=== PATIENT | male | born 1990 | race Caucasian/White ===

== ENCOUNTER 2017-07-05 05:15 | Inpatient (IN) ==
--- NOTE | 2017-06-27 14:36 | EKG Report ---
Stationary ECG Study [facility] Test Date: 06/27/2017 2:37:31 PM Pat Name: YUMIKO IZQUIERDO Department: Room: Gender: M Adjunct Phlebotomy Instructor: ROSETTE SCHAEFER : 1990 Requested by: Lloyd Schaefer Order Number: [id number] Reading MD: DANG BLANK Intervals [place] Rate: 87 P: 63 MS: 103 QRS: 36 QRSD: 101 T: -20 QT: 348 QTc: 392 Interpretive Statements SINUS RHYTHM WITH SHORT MS INTERVAL INFERIOR MYOCARDIAL INFARCTION, OF INDETERMINATE AGE PROBABLE ANTEROLATERAL MYOCARDIAL INFARCTION, OF INDETERMINATE AGE INTERPRETATION BASED ON A DEFAULT AGE OF 40 YEARS Electronically Signed On 06-27-17 15:32:03 CDT by DANG BLANK [email or web address]
[2017-06-27 14:38] LABS: Apearance,Urine CLEAR (Clear); Bilirubin,Urine Negative (Negative); Blood, Urine Negative (Negative); Glucose,Urine (UA) Negative (Negative); Ketones,Urine Negative (Negative); Nitrite,Urine Negative (Negative); Protein,Urine Negative; RBC,Urine <1 /HPF (0-4); Squamous Epithelial Cell,Urine Occasional /HPF (0-10); Urine Color Yellow (Yellow); Urine Specific Gravity 1.009 (1.001-1.035); Urine Urobilinogen < 2.0 EU/DL (0.2-1.0); WBC,Urine <1 /HPF (0-6)
[2017-06-27 14:56] LABS: Calcium 9.5 MG/DL (8.5-10.1); Osmolality,Calculated 272.7 MOS/KG (273-304); Potassium 4.2 MMOL/L (3.5-5.1)
[2017-06-27 19:15] LABS: Basophils # 0.1 10*3/uL (0.0-0.2); Basophils % 0.6 % (0.0-0.8); Eosinophils # 0.2 10*3/uL (0.0-0.87); Eosinophils % 1.7 % (0.00-10.9); Hematocrit 41.6 VOL% (42.0-52.0); Hemoglobin 15.1 GM/DL (14.0-18.0); Immature Granulocytes % 0.2 %; Immature Granulocytes Absolute 0.02 #; Lymphocytes # 1.7 10*3/uL (1.4-4.0); Mean Corpuscular HGB Conc 36.3 GM/DL (32-36); Mean Corpuscular Hemoglobin 31 PG (27-34); Mean Corpuscular Volume 84.6 FL (87-102); Mean Platelet Volume 10.1 FL (9.6-12.0); Monocytes # 0.5 10*3/uL (0.11-0.8); Monocytes % 5.1 % (1.7-12.7); Neutrophils # 6.5 10*3/uL (1.4-7.4); Neutrophils % 73.4 % (38.7-73.9); Platelet Count 319 T/CUMM (130-400); Red Blood Count 4.92 MC/CUMM (3.8-5.5); Red Cell Distribution Width 12.1 % (9.3-17.3); White Blood Count 8.9 T/CUMM (4-12)
[2017-07-05] MEDS ORDERED: ALVIMOPAN 12 MG CAPSULE PO ONE (06:00)
[2017-07-05] MEDS ORDERED: cefTRIAXone 1,000 MG in SODIUM CHLORIDE 0.9% 100 ML IV ONE (06:00)
[2017-07-05] MEDS ORDERED: INDOCYANINE GREEN 25 MG VIAL IV ONE (06:08)
[2017-07-05] MEDS: LACTATED RINGERS 1,000 ML IV SCH (06:45)
[2017-07-05] MEDS ORDERED: cefTRIAXone 1,000 MG VIAL ONE (06:54)
[2017-07-05] MEDS ORDERED: SODIUM CHLORIDE 0.9% 100 ML IV ONE (06:54)
[2017-07-05] MEDS ORDERED: NEOSTIGMINE 10 MG/10 ML VIAL ONE (07:10)
[2017-07-05] MEDS ORDERED: DEXAMETHASONE 4 MG/1 ML VIAL ONE (07:10)
[2017-07-05] MEDS ORDERED: ONDANSETRON 4 MG/2 ML VIAL ONE ×2 (07:10→12:56)
[2017-07-05] MEDS ORDERED: GLYCOPYRROLATE 0.4 MG/2 ML VIAL ONE (07:10)
[2017-07-05] MEDS ORDERED: PROPOFOL 200 MG/20 ML VIAL IV ONE (07:10)
[2017-07-05] MEDS ORDERED: MANNITOL 100 GM/500 ML BAG IV ONE (07:10)
[2017-07-05] MEDS ORDERED: LIDOCAINE 2% 5 ML VIAL ONE (07:10)
[2017-07-05] MEDS ORDERED: ROCURONIUM 100 MG/10 ML VIAL IV ONE (07:10)
[2017-07-05] MEDS ORDERED: PHENYLEPHRINE 1 MG/10 ML SYRINGE IV ONE (07:10)
[2017-07-05 09:17] LABS: Apearance,Urine CLEAR (Clear); Bacteria,Urine Occasional /HPF (Few); Bilirubin,Urine Negative (Negative); Blood, Urine Small mg/dL (Negative); Glucose,Urine (UA) Negative (Negative); Ketones,Urine Negative (Negative); Mucus,Urine Occasional /LPF (Occasional); Nitrite,Urine Negative (Negative); Protein,Urine Negative; RBC,Urine 10 /HPF (0-4); Urine Color Straw (Yellow); Urine Specific Gravity 1.011 (1.001-1.035); Urine Urobilinogen < 2.0 EU/DL (0.2-1.0); WBC,Urine 1 /HPF (0-6)
[2017-07-05] MEDS ORDERED: diphenhydrAMINE 50 MG/1 ML VIAL IV PRN (12:09)
[2017-07-05] MEDS ORDERED: MEPERIDINE 25 MG/1 ML VIAL ONE (12:15)
[2017-07-05] MEDS ORDERED: HYDROmorphone PCA 30 MG/30 ML SYRINGE IV ONE (12:17)
--- NOTE | 2017-07-05 12:19 | Operative Note ---
Date of procedure: 07/05/17 Pre-op diagnosis: Left renal mass consistent with renal cell carcinoma Post-op diagnosis: same Procedure: 26-year-old white male with a left renal masses consistent with a renal cell carcinoma. Potentially could be an oncocytoma or angiomyolipoma. Is about 3.2 cm. We have discussed options and I have recommended a robotic assisted laparoscopic left partial nephrectomy. This procedure was explained at length and in detail. Risks, complications, outcomes, sequelae, prognosis and alternative therapy was thoroughly discussed. Patient understood this and agreed to proceed. Patient is brought to the operative suite placed table in supine position given a general endotracheal anesthetic and then placed in the right lateral decubitus position and prepared and draped in the usual sterile manner. Patient is slightly rotated out. A formal timeout was performed. In looking at the CT and where the hilum is high made my incision for the camera and went down and dissected out the subcutaneous tissue. Cautery was used for hemostasis. Veress needle was then placed in the abdomen and pneumoperitoneum was obtained. Approximately 2-1/2 L are placed and the Veress needle was removed. 8 mm trochars placed in this. Camera was then inserted and the intra-abdominal contents are examined. There is no vascular bowel injury with access. To the left and right of the camera 8 mm ports placed under direct vision. Systems ports placed between the camera and the third arm and this was a 12 mm port. 5 mm port was placed in the left flank down below the ribs laterally about the edge of the scapula. The robot was then docked. I went to the console and using [place] bipolar forceps in the left and monopolar scissors in the right the colon is reflected by incising white line of Toldt. Kidney is identified in the Gerota's fascia is then opened up. Kidney is completely freed up using sharp and blunt dissection cautery was used hemostasis. The upper end of the tumor seen at the upper pole on the lateral to somewhat posterior margin. The hilum was dissected out renal vein was identified and it was dissected out where just before it bifurcated. The artery could see be seen to pulsate and there is actually an artery in between the bifurcation. This was gently dissected out. The kidney was flipped and the artery was found posteriorly. The ultrasound probe was placed in this this tumor was identified this is measured at 33.8 cm in length about 25 mm in width and 25.4 mm in depth. Bulldog clamps were then used in the artery posteriorly and anteriorly were then clamped and after about 30 seconds the vein was then clamped. Prior to clamping mannitol was given 12.5 g 2 for total 25 g. The tumor was then excised sharply. Margin looked good. The collecting system was entered. A 3 oh lei suture with Weck clip and Lapra-Ty on the end was then used to close the collecting system and deep tissue in a running fashion. This was then pulled out and then a Weck clip and a Lapra-Ty was placed. 2-0 Vicryl nephrotomy closure sutures were then passed with a Weck clip and a Lapra- Ty on the far end. After was brought through the nephrotomy a Weck clip was used to tied down. Total nephrotomy sutures used was 5. FloSeal was then placed nephrotomy in the nephrotomy sutures were cinched down. The clamps were removed. Total clamp time was 20 minutes 17 seconds. In the upper portion I need to use more FloSeal. This was then applied and Tisseel was used on top of that. This was done 2. Surgicel was then used over over this. Pneumoperitoneum was dropped there was no significant bleeding. Gerota's fascia was closed with Weck clips. Small Collin-Yost was placed posterior to the kidney and brought out through the 5 mm port. Pneumoperitoneum was dropped down to 0 there was no significant bleeding. Tumor was placed in a collection bag. The robot was undocked and the ports were removed. The kidney rest was laying flat and the break was removed from the table. The assistance port was lengthened within scalpel and the fascia was divided somewhat to remove the specimen. The specimen inside the specimen bag was removed. Cautery was used for hemostasis. All wounds are irrigated and drained and hemostasis again checked. All wounds were closed skin clips. The PONCHO was sewn the skin with 2-0 silk and some skin clips were used to help close that wound. Sterile dressings were placed on the wounds. Patient was then rolled to the supine position awakened from general anesthesia having tolerated procedure well and was sent to the recovery room in stable condition. All sponge, needle and instrument counts correct 2. Implants: 7 mm PONCHO Anesthesia: IVONNE Surgeon / Physician: Lloyd Schaefer Master Craftsman: Jerson Krishnan Estimated blood loss: other (200 cc) Specimens: other (Partial nephrectomy) Condition: stable Disposition: PACU Results - Labs CBC & BMP: 06/27/17 14:27 06/27/17 14:27 Discharge Plan - Discharge Medications No Action No Known Home Medications [No Known Home Medications] - Follow Up or Referral - Forms/Instructions
[2017-07-05] MEDS ORDERED: SEVOFLURANE 1 UNIT/15 MINUTE INH ONE (12:22)
[2017-07-05] MEDS ORDERED: MIDAZOLAM 2 MG/2 ML VIAL ONE (12:23)
[2017-07-05] MEDS ORDERED: ACETAMINOPHEN 1,000 MG/100 ML VIAL IV ONE (12:23)
[2017-07-05] MEDS ORDERED: fentaNYL 100 MCG/2 ML VIAL ONE (12:23)
[2017-07-05] MEDS ORDERED: LACTATED RINGERS 2,000 ML IV ONE (12:24)
[2017-07-05] MEDS: HYDROmorphone PCA 30 MG/30 ML SYRINGE IV SCH (12:25)
--- NOTE | 2017-07-05 12:36 | Anesthesia Post-Op ---
Anesthesia Post OP - Post Ansesthetic Evaluation Patient seen in post op: Yes Resp: within normal limits CV: within normal limits Mental: within normal limits (pt remains sedate) Temp: within normal limits Oaer-Yx-Ivarpdwje: within normal limits Nausea and Vomiting: within normal limits Pain: within normal limits
[2017-07-05] MEDS: ONDANSETRON 4 MG/2 ML VIAL IV PRN ×2 (12:59→17:20)
[2017-07-05] MEDS: DEXTROSE 5% NACL 0.45% 1,000 ML IV SCH (13:37)
--- NOTE | 2017-07-05 18:37 | Urology Progress Note ---
Urology - PN: Subj Interval history: Postoperative check. Patient is awake. Urine was bloody but cleared up and now bloody with ambulation. His PONCHO drainage is about 120 and I will leave that to gravity. Vital signs are stable. Patient is stable. Exam - Constitutional Vitals: Period Temp Pulse Resp BP Sys/Mercado Pulse Ox Last 24 Hr 97.4 F-98.3 F 68-109 16-24 123-140/41-83 95-100 Results - Labs CBC & BMP: 06/27/17 14:27 06/27/17 14:27
[2017-07-06 06:16] LABS: Basophils % 0.1 % (0.0-0.8); Eosinophils % 0.1 % (0.00-10.9); Hematocrit 34.4 VOL% (42.0-52.0); Hemoglobin 12.4 GM/DL (14.0-18.0); Immature Granulocytes % 0.5 %; Immature Granulocytes Absolute 0.09 #; Lymphocytes # 1.8 10*3/uL (1.4-4.0); Lymphocytes % 10.8 % (21.2-54.2); Mean Corpuscular Hemoglobin 31 PG (27-34); Mean Corpuscular Volume 85.8 FL (87-102); Mean Platelet Volume 9.4 FL (9.6-12.0); Monocytes # 1.4 10*3/uL (0.11-0.8); Monocytes % 8.6 % (1.7-12.7); Neutrophils # 13.2 10*3/uL (1.4-7.4); Neutrophils % 79.9 % (38.7-73.9); Platelet Count 245 T/CUMM (130-400); Red Blood Count 4.01 MC/CUMM (3.8-5.5); Red Cell Distribution Width 11.9 % (9.3-17.3); White Blood Count 16.5 T/CUMM (4-12)
[2017-07-06] MEDS: ONDANSETRON 4 MG/2 ML VIAL IV PRN ×4 (06:23→22:50)
[2017-07-06] MEDS: DEXTROSE 5% NACL 0.45% 1,000 ML IV SCH ×4 (06:24→22:47)
[2017-07-06 06:58] LABS: Calcium 8.5 MG/DL (8.5-10.1); Osmolality,Calculated 274.8 MOS/KG (273-304); Potassium 3.9 MMOL/L (3.5-5.1)
[2017-07-06] MEDS: LACTATED RINGERS 1,000 ML IV SCH (07:33)
[2017-07-06] MEDS ORDERED: MEPERIDINE 50 MG/1 ML VIAL IM PRN (09:04)
--- NOTE | 2017-07-06 09:07 | Urology Progress Note ---
Urology - PN: Subj Interval history: Patient has stable night. Continue hematuria. He had a few clots in his bladder and we removed the August. H&H is 12 and 34. PONCHO drainage is decreased I will run her creatinine on that and will probably remove it. We will advance his diet. We will DC the PRODUCTION WOOD CRAFTSMAN and place him on oral meds with IM Demerol if needed. He needs to ambulate a little bit. Exam - Constitutional Vitals: Period Temp Pulse Resp BP Sys/Mercado Pulse Ox Last 24 Hr 97.1 F-98.3 F 87-109 16-24 123-158/41-86 95-100 Results - Labs CBC & BMP: 07/06/17 06:00 07/06/17 06:00
[2017-07-06] MEDS: HYDROmorphone PCA 30 MG/30 ML SYRINGE IV SCH (11:00)
[2017-07-06] MEDS: oxyCODONE/ACETAMINOPHEN 5-325 MG TABLET PO PRN ×3 (11:11→22:50)
--- NOTE | 2017-07-06 11:24 | Pathology Report from [facility] ---
[facility] [place]ESSION # : [id number] PATIENT NAME : Mike Izquierdo ORDERING DR : LYN HOPE MD CLINICAL HX: Left renal cell carcinoma POST-OP DX: Same SPECIMEN INFO: Left renal carcinoma GROSS DESCRIPTION: The specimen is received in formalin labeled with the patients name and consists of a portion of pink-pickard kidney tissue measuring 5.4 x 4.3 x 2.7 cm. Sectioning reveals a 3.0 x 3.5 cm yellow-orange circumscribed tumor mass which grossly comes to within 0.2 cm of the renal capsule which is inked blue and also within 0.2 cm of the surgical margin which is inked black. Sectioned and submitted in cassettes A thru F. DIAGNOSIS FOR MIKE IZQUIERDO: LEFT KIDNEY, PARTIAL NEPHRECTOMY: TYPE: Renal cell carcinoma, clear cell type. SIZE: 3.5 x 3.0 cm. SHERIN GRADE: 2. MARGINS: Uninvolved. SITE: Not designated. FOCALITY: Unifocal. ANATOMIC EXTENT: Tumor limited to kidney. SARCOMATOID FEATURES: Not identified. TUMOR NECROSIS: Present (50% of tumor). LYMPH NODES: Number examined: 0. FINDINGS IN KIDNEY: None. AJCC PATHOLOGIC STAGE: I ([id number]).. COLLECTED DATE: 07/05/2017 [facility] REPORT DATE: 07/06/2017 ELECTRONICALLY SIGNED BY: Belén Baer M.D. 07/06/2017 - 10:47:10 [facility]
[2017-07-06 14:45] LABS: Basophils % 0.1 % (0.0-0.8); Hematocrit 30.2 VOL% (42.0-52.0); Hemoglobin 10.8 GM/DL (14.0-18.0); Immature Granulocytes % 0.9 %; Immature Granulocytes Absolute 0.22 #; Lymphocytes # 1.4 10*3/uL (1.4-4.0); Lymphocytes % 5.5 % (21.2-54.2); Mean Corpuscular HGB Conc 35.8 GM/DL (32-36); Mean Corpuscular Hemoglobin 31 PG (27-34); Mean Corpuscular Volume 87.3 FL (87-102); Mean Platelet Volume 9.9 FL (9.6-12.0); Monocytes # 1.7 10*3/uL (0.11-0.8); Monocytes % 6.6 % (1.7-12.7); Neutrophils # 21.9 10*3/uL (1.4-7.4); Neutrophils % 86.9 % (38.7-73.9); Platelet Count 361 T/CUMM (130-400); Red Blood Count 3.46 MC/CUMM (3.8-5.5); Red Cell Distribution Width 12.1 % (9.3-17.3); White Blood Count 25.2 T/CUMM (4-12)
[2017-07-06] MEDS ORDERED: ALUMINUM/MAGNES/SIMETH MAX STR 30 ML UDCUP PO PRN (19:05)
[2017-07-06 19:20] LABS: Burr Cells Few; Lymphocytes 6 % (20-55); Platelet Estimate Normal; Poikilocytosis Slight; Segmented Neutrophils 90 % (50-85); Total Cells Counted 100
--- NOTE | 2017-07-07 07:08 | Urology Progress Note ---
Urology - PN: Subj Interval history: Patient is feeling better. I remove the PONCHO and he has not had any further issues. His urine is clearing up. His appetite is returning. His abdomen is soft. I will take out his IV and INT it. We will put his wounds to area except for the flank dressing which we will just change. CBC is pending and I will check on that. We will give him solid food. Exam - Constitutional Vitals: Period Temp Pulse Resp BP Sys/Mercado Pulse Ox Last 24 Hr 96.9 F-98.5 F 88-110 16-20 125-133/67-82 92-99 Results - Labs CBC & BMP: 07/06/17 14:20 07/06/17 06:00
[2017-07-07] MEDS: oxyCODONE/ACETAMINOPHEN 5-325 MG TABLET PO PRN ×3 (08:05→18:14)
[2017-07-07] MEDS: DEXTROSE 5% NACL 0.45% 1,000 ML IV SCH (08:10)
[2017-07-07] MEDS: LACTATED RINGERS 1,000 ML IV SCH (08:10)
[2017-07-07 08:18] LABS: Basophils % 0.1 % (0.0-0.8); Eosinophils % 0.1 % (0.00-10.9); Immature Granulocytes % 0.7 %; Immature Granulocytes Absolute 0.12 #; Lymphocytes # 2.2 10*3/uL (1.4-4.0); Lymphocytes % 12.3 % (21.2-54.2); Mean Corpuscular HGB Conc 37.3 GM/DL (32-36); Mean Corpuscular Hemoglobin 32 PG (27-34); Mean Corpuscular Volume 84.6 FL (87-102); Mean Platelet Volume 10.1 FL (9.6-12.0); Monocytes # 1.9 10*3/uL (0.11-0.8); Monocytes % 10.6 % (1.7-12.7); Neutrophils # 13.8 10*3/uL (1.4-7.4); Neutrophils % 76.2 % (38.7-73.9); Red Cell Distribution Width 12.2 % (9.3-17.3); White Blood Count 18.1 T/CUMM (4-12)
[2017-07-07 08:22] LABS: Hemoglobin 8.2 GM/DL (14.0-18.0); Platelet Count 268 T/CUMM (130-400)
[2017-07-07] MEDS: MULTIVITAMIN (INTRINSIC) CAPSULE PO SCH ×2 (09:39→20:40)
[2017-07-08] MEDS: oxyCODONE/ACETAMINOPHEN 5-325 MG TABLET PO PRN ×4 (02:04→19:00)
[2017-07-08 06:33] LABS: Basophils % 0.2 % (0.0-0.8); Eosinophils % 0.3 % (0.00-10.9); Hemoglobin 6.6 GM/DL (14.0-18.0); Immature Granulocytes % 0.7 %; Immature Granulocytes Absolute 0.08 #; Lymphocytes # 1.5 10*3/uL (1.4-4.0); Lymphocytes % 13.3 % (21.2-54.2); Mean Corpuscular HGB Conc 36.7 GM/DL (32-36); Mean Corpuscular Hemoglobin 31 PG (27-34); Mean Corpuscular Volume 85.7 FL (87-102); Monocytes % 8.4 % (1.7-12.7); Neutrophils % 77.1 % (38.7-73.9); Platelet Count 196 T/CUMM (130-400); Red Cell Distribution Width 12.3 % (9.3-17.3); White Blood Count 11.6 T/CUMM (4-12)
[2017-07-08] MEDS ORDERED: SODIUM CHLORIDE 0.9% 250 ML IV PRN (07:32)
[2017-07-08] MEDS: MULTIVITAMIN (INTRINSIC) CAPSULE PO SCH ×2 (08:26→20:20)
[2017-07-08] MEDS ORDERED: MAGNESIUM HYDROXIDE SUSP 30 ML UDCUP PO PRN (11:49)
--- NOTE | 2017-07-08 11:54 | Urology Progress Note ---
Urology - PN: Subj Interval history: Patient's H&H trickle down to 6 and 18. With an HI transfused him 2 units of blood. His urine is dark but not bloody. He has had no further drainage from the flank. Hopefully the bleeding episode is over. We will check a blood count in the morning. I am trying not to embolize his kidney as he will lose more renal tissue and he is very young. Exam - Constitutional Vitals: Period Temp Pulse Resp BP Sys/Mercado Pulse Ox Last 24 Hr 97.8 F-99.1 F 95-111 16-20 106-144/59-87 92-100 Results - Labs CBC & BMP: 07/08/17 05:48 07/06/17 06:00
[2017-07-08] MEDS: MAGNESIUM HYDROXIDE SUSP 30 ML UDCUP PO SCH (20:20)
[2017-07-09] MEDS: oxyCODONE/ACETAMINOPHEN 5-325 MG TABLET PO PRN ×3 (04:38→16:46)
[2017-07-09 07:02] LABS: Basophils % 0.2 % (0.0-0.8); Eosinophils # 0.1 10*3/uL (0.0-0.87); Eosinophils % 1.3 % (0.00-10.9); Hematocrit 22.9 VOL% (42.0-52.0); Hemoglobin 8.1 GM/DL (14.0-18.0); Immature Granulocytes % 0.6 %; Immature Granulocytes Absolute 0.06 #; Lymphocytes % 9.9 % (21.2-54.2); Mean Corpuscular HGB Conc 35.4 GM/DL (32-36); Mean Corpuscular Hemoglobin 30 PG (27-34); Mean Corpuscular Volume 83.6 FL (87-102); Mean Platelet Volume 9.6 FL (9.6-12.0); Monocytes # 0.7 10*3/uL (0.11-0.8); Monocytes % 6.9 % (1.7-12.7); Neutrophils # 7.9 10*3/uL (1.4-7.4); Neutrophils % 81.1 % (38.7-73.9); Platelet Count 211 T/CUMM (130-400); Red Blood Count 2.74 MC/CUMM (3.8-5.5); White Blood Count 9.8 T/CUMM (4-12)
[2017-07-09] MEDS: MAGNESIUM HYDROXIDE SUSP 30 ML UDCUP PO SCH ×2 (08:48→20:44)
[2017-07-09] MEDS: MULTIVITAMIN (INTRINSIC) CAPSULE PO SCH ×2 (09:00→20:44)
--- NOTE | 2017-07-09 12:28 | Urology Progress Note ---
Urology - PN: Subj Interval history: Patient has stable night. H&H was 8 and 23 after the blood he is feeling better he has had a bowel movement. I will move the pressure dressing from the left side and see how he does today. Exam - Constitutional Vitals: Period Temp Pulse Resp BP Sys/Mercado Pulse Ox Last 24 Hr 97.1 F-98.6 F 89-106 15-20 100-146/37-95 94-99 Results - Labs CBC & BMP: 07/09/17 05:34 07/06/17 06:00
[2017-07-10] MEDS: oxyCODONE/ACETAMINOPHEN 5-325 MG TABLET PO PRN ×2 (01:32→09:40)
[2017-07-10] MEDS: MULTIVITAMIN (INTRINSIC) CAPSULE PO SCH (09:38)
[2017-07-10] MEDS: MAGNESIUM HYDROXIDE SUSP 30 ML UDCUP PO SCH (09:41)
[2017-07-10 12:02] LABS: Basophils % 0.2 % (0.0-0.8); Eosinophils # 0.2 10*3/uL (0.0-0.87); Hematocrit 25.3 VOL% (42.0-52.0); Hemoglobin 9.1 GM/DL (14.0-18.0); Immature Granulocytes % 0.6 %; Immature Granulocytes Absolute 0.06 #; Lymphocytes # 1.2 10*3/uL (1.4-4.0); Lymphocytes % 12.8 % (21.2-54.2); Mean Corpuscular Hemoglobin 30 PG (27-34); Mean Corpuscular Volume 83.8 FL (87-102); Mean Platelet Volume 8.9 FL (9.6-12.0); Monocytes # 0.9 10*3/uL (0.11-0.8); Monocytes % 9.6 % (1.7-12.7); Neutrophils # 7.1 10*3/uL (1.4-7.4); Neutrophils % 74.8 % (38.7-73.9); Platelet Count 286 T/CUMM (130-400); Red Blood Count 3.02 MC/CUMM (3.8-5.5); Red Cell Distribution Width 13.7 % (9.3-17.3); White Blood Count 9.5 T/CUMM (4-12)
[2017-07-10 12:03] LABS: Hematocrit 25.6 VOL% (42.0-52.0); Hemoglobin 9.2 GM/DL (14.0-18.0)
--- NOTE | 2017-07-10 12:36 | Discharge Summary ---
Hospital Course - Hospital Course Hospital Course: 26-year-old white male was found to have a renal mass consistent with renal cell carcinoma. He was admitted the hospital in robotic assisted laparoscopic left partial nephrectomy. Postoperatively he had bleeding episode. This was observed but he continued to bleed and required 2 units transfusion. His final H&H is 9 and 25. So is improving. His urine is now clear and is having no further drainage from the flank wound. He had a drain placed that was posterior to the kidney. Prior to removing the drain I checked her creatinine level and it was same as serum. So there was no leak. But is doing well now. Pathology report reveals confined renal cell carcinoma Pilar grade 2. We will discharge him to see him me in 2 weeks. We discussed activity. His discharge per current prescription for Percocet 5 mg, #20, 1-2 every 4-6 hours as needed pain. Trinsicon #60, 1 p.o. twice daily, 0 refills. Diagnosis - Discharge Diagnosis (1) Renal cell carcinoma Status: Acute (2) Postoperative hemorrhage Status: Resolved Discharge Plan - Discharge Data Disposition: Disch To Home/Self Care Condition at Discharge: Stable Discharge Diet: advance to your usual diet Activity: no lifting, other (Minimal, walking on flat ground is encouraged) Hygiene: no restrictions Weight Bearing at Discharge: full weight bearing Driving: not until seen by doctor Contact your physician if you experience:: fever over 101, Difficulty voiding, Redness or swelling, Nausea/Vomiting, Bleeding, pain uncontrolled by pain medications - Discharge Medications No Action No Known Home Medications [No Known Home Medications] - Follow Up or Referral - Forms/Instructions Exam - Constitutional Vitals: Period Temp Pulse Resp BP Sys/Mercado Pulse Ox Last 24 Hr 97.7 F-99.1 F 74-94 14-20 122-146/62-79 17-100 Discharge Results Labs on day of discharge: Labs from last 24 hours 07/10/17 07/10/17 11:34 11:34 WBC 9.5 RBC 3.02 L Hgb 9.1 L 9.2 L Hct 25.3 L 25.6 L MCV 83.8 L MCH 30 MCHC 36.0 RDW 13.7 Plt Count 286 D MPV 8.9 L Neut % (Auto) 74.8 H Lymph % (Auto) 12.8 L [place] % (Auto) 9.6 Eos % (Auto) 2.0 Baso % (Auto) 0.2 Neut # (Auto) 7.1 Lymph # (Auto) 1.2 L [place] # (Auto) 0.9 H Eos # (Auto) 0.2 Baso # (Auto) 0.0 Immature Gran % 0.6 Nucleated RBC % 0.0 Immature Gran # 0.06 Nucleated RBCs # 0.00 Immature Plt Fraction 0.0 DS: Provider Date of admission: 07/05/17 12:09 Primary care physician: . No PCP Attending physician on admission: Lloyd Schaefer MD Discharging clinician: Lloyd Schaefer MD
[2017-07-10 13:09] VITALS: BP 149/94
--- NOTE | 2017-07-12 11:52 | Operative Note ---
Date of procedure: 07/05/17 Pre-op diagnosis: left renal mass Post-op diagnosis: same Procedure: Robotic Assisted Laparoscopic partial Nephrectomy This is a patient of Dr. Schaefer who is brought to the OR for robotic partial nephrectomy. He has left renal mass that is somewhat posterior and upper pole. Dr. Schaefer was performing robotic procedure, but needed assistance with bedside manipulation of the kidney to allow for excision of mass with closure of renal defect. I scrubbed into the case, placed a 5 mm assistant product manager port, and I used a hand-held retractor and laparoscopic instruments to assist with manipulation of the kidney. I was scrubbed for the critical portion of the case. I then assisted with removal of the renal mass and closure of the fascia. At this point I scrubbed out of the case. Please see Dr. Schaefer operative note for further details. Anesthesia: GETA Surgeon / Physician: Lloyd Schaefer Head Chef: Jerson Krishnan Condition: stable Disposition: PACU Results - Labs CBC & BMP: 07/10/17 11:34 07/06/17 06:00 Discharge Plan - Discharge Data Disposition: Disch To Home/Self Care - Discharge Medications No Action No Known Home Medications [No Known Home Medications] - Follow Up or Referral Follow Up: Lloyd Schaefer MD [Physician] - 07/26/17 2:45 pm - Forms/Instructions Instructions: Oxycodone/Acetaminophen (By mouth), Renal Cancer (DC)
== END 2017-07-10 14:40 | disposition home or self-care (01) | DRG 657 ==
LOC: N.OR 05:15 → N.SDSINP 05:16 → N.5E 14:02
PROVIDERS: ADMIT Urology; ATTEND Urology